=== PATIENT | female | born 1945 | race Caucasian/White ===

== ENCOUNTER 2019-07-17 08:14 | Outpatient (CLI) | payer MEDICARE ==
--- NOTE | 2019-07-17 08:54 | MMO ---
Bilateral MAMMO Bilat Screen [facility]. CLINICAL HISTORY: Patient is 73 years old and is seen for screening. The patient has the following family history of breast cancer: mother, at age 55. The patient has no personal history of cancer. VIEWS: The views performed were: bilateral craniocaudal with tomosynthesis and bilateral mediolateral oblique with tomosynthesis. FILMS COMPARED: The present examination has been compared to prior imaging studies performed at [facility] on 09/16/2008, 05/27/2011, 07/05/2013 and 07/01/2015. This study has been interpreted with the assistance of computer-aided detection. MAMMOGRAM FINDINGS: The breasts are heterogeneously dense, which could obscure a lesion on mammography. There are no suspicious masses, suspicious calcifications, or new areas of architectural distortion. IMPRESSION: THERE IS NO MAMMOGRAPHIC EVIDENCE OF MALIGNANCY. A ROUTINE FOLLOW-UP MAMMOGRAM IN 1 YEAR IS RECOMMENDED. THE RESULTS OF THIS EXAM WERE SENT TO THE PATIENT. ACR BI-RADS Category 1 - Negative MAMMOGRAPHY NOTE: 1. A negative mammogram report should not delay a biopsy if a dominant of clinically suspicious mass is present. 2. Approximately 10% to 15% of breast cancers are not detected by mammography. 3. Adenosis and dense breasts may obscure an underlying neoplasm. Reported by: BENNETT CALDERÓN MD Electonically Signed: [id number]
--- NOTE | 2019-07-17 09:43 | BD ---
DEXA DENSITOMETRY: INDICATIONS: Postmenopausal screening. FINDINGS: LUMBAR SPINE BMD (g/cm2) T-SCORE L1 0.899 -0.8 L2 0.933 -0.9 L3 0.936 -1.3 L4 1.023 -0.3 TOTAL 0.949 -0.9 FEMORAL NECK 0.660 -1.7 TOTAL 0.852 -0.7 IMPRESSION: 1. The bone mineral density of the lumbar spine is within the normal range. 2. The bone mineral density of the femoral neck indicates osteopenia. 3. The 10 year fracture risk for a major osteoporotic fracture is 11% and for a hip fracture is 1.8%. POS: [facility]
== END 2019-07-17 08:15 | disposition home or self-care (01) ==
LOC: BICMAMMO 08:14
PROVIDERS: ATTEND Family Medicine
DX: Z12.31 Encounter for screening mammogram for malignant neoplasm of breast (principal); Z13.820 Encounter for screening for osteoporosis; M85.859 Other specified disorders of bone density and structure, unspecified thigh; Z80.3 Family history of malignant neoplasm of breast; Z78.0 Asymptomatic menopausal state
CPT/HCPCS: 77063; 77067; 77080